=== PATIENT | female | born 1990 | race Caucasian/White ===

== ENCOUNTER 2018-09-17 13:59 | Outpatient (CLI) | payer MEDICAID | END 2018-09-17 19:10 | disposition home or self-care (01) | LOC: OBT 13:59 → L-D 13:59 → OBT 19:10 | DX: O28.1 Abnormal biochemical finding on antenatal screening of mother (principal); Z3A.36 36 weeks gestation of pregnancy | CPT/HCPCS: 76818 ==

== ENCOUNTER 2018-09-18 10:10 | Outpatient (CLI) | payer MEDICAID | END 2018-09-18 12:50 | disposition home or self-care (01) | LOC: OBT 10:10 → L-D 10:10 → OBT 12:50 | DX: O36.8130 Decreased fetal movements, third trimester, not applicable or unspecified (principal); Z3A.36 36 weeks gestation of pregnancy | CPT/HCPCS: 76818 ==

== ENCOUNTER 2018-10-06 06:10 | Inpatient (IN) | payer MEDICAID ==
[2018-10-06] MEDS: LACTATED RINGER'S 1,000 ML IV ×4 (06:41→22:33)
[2018-10-06 06:54] LABS: ADD MAN DIFF? NO
[2018-10-06 06:56] LABS: WHITE BLOOD COUNT 5.7 10^3/ul (4.8-10.8)
[2018-10-06 06:56] LABS: BASOPHILS % 0.7 % (0.0-2.0); EOSINOPHILS # 0.1 10^3/ul (0.0-0.5); EOSINOPHILS % 0.9 % (0.0-7.0); HEMATOCRIT 36.3 % (37.0-47.0); HEMOGLOBIN 12.4 g/dl (12.0-16.0); LYMPHOCYTES # 1.9 10^3/ul (0.8-2.9); LYMPHOCYTES % 32.6 % (15.0-51.0); MEAN CORPUSCULAR HEMOGLOBIN 30.8 pg (29.0-33.0); MEAN CORPUSCULAR HGB CONC 34.2 g/dl (32.0-37.0); MEAN CORPUSCULAR VOLUME 90.3 fl (82.0-101.0); MEAN PLATELET VOLUME 10.9 fl (7.4-10.4); MONOCYTE # 0.5 10^3/ul (0.3-0.9); MONOCYTES % 7.8 % (0.0-11.0); NEUTROPHIL # 3.3 10^3/ul (1.6-7.5); NEUTROPHILS % 57.7 % (39.0-77.0); PLATELET COUNT 188 10^3/UL (140-415); RED BLOOD COUNT 4.02 10^6/ul (4.20-5.40); RED CELL DISTRIBUTION WIDTH 12.4 % (11.5-14.5)
[2018-10-06] MEDS ORDERED: CARBOPROST 250 MCG INJ IM (07:00)
[2018-10-06] MEDS ORDERED: CEFAZOLIN 2 GM/50 ML (PMX) 50 ML IVPB (07:00)
[2018-10-06] MEDS ORDERED: METHYLERGONOVINE 0.2 MG INJ IM (07:00)
[2018-10-06] MEDS ORDERED: OXYTOCIN 30 UNITS/LR 500 ML IV ×2 (07:00)
[2018-10-06] MEDS ORDERED: MISOPROSTOL 200 MCG TAB PR ×2 (07:00→09:00)
[2018-10-06 07:13] LABS: INR 0.86; PARTIAL THROMBOPLASTIN TIME 24.4 Sec (23.0-35.0); PROTIME 11.8 Sec (11.9-14.9); PT RATIO 0.9
[2018-10-06 07:47] LABS: HEPATITIS B SURFACE ANTIGEN NEGATIVE (NEGATIVE)
[2018-10-06] MEDS: CITRIC ACID/NA CITRATE 30 ML CUP PO (08:32)
[2018-10-06] MEDS ORDERED: METOCLOPRAMIDE 10 MG INJ (08:37)
[2018-10-06] MEDS ORDERED: morphine SULFATE/PF (10 MG/10 ML) INJ (08:37)
[2018-10-06] MEDS ORDERED: ONDANSETRON 4 MG INJ (08:37)
[2018-10-06] MEDS ORDERED: KETOROLAC 30 MG INJ (08:46)
[2018-10-06] MEDS: SENNA/DOCUSATE NA (8.6MG/50MG) TAB PO ×2 (09:00→21:18)
[2018-10-06] MEDS ORDERED: NA PHOSPHATE/BIPHOS 133 ML ENEMA PR (09:00)
[2018-10-06] MEDS ORDERED: LANOLIN HPA 1 PKT TOP (09:00)
[2018-10-06] MEDS ORDERED: OXYCODONE/ACETAMINOPHEN (5/325) TAB PO (09:00)
[2018-10-06] MEDS ORDERED: FENTAnyl 50 MCG/ML VIAL (09:17)
[2018-10-06] MEDS ORDERED: morphine (1 MG/ML) 10ML SYRINGE IV ×3 (10:00)
[2018-10-06] MEDS ORDERED: ONDANSETRON 4 MG INJ IV ×2 (10:00)
[2018-10-06] MEDS ORDERED: DIPHENHYDRAMINE 50 MG INJ IV ×2 (10:00)
[2018-10-06] MEDS ORDERED: morphine 2 MG INJ IV ×3 (10:00)
[2018-10-06] MEDS ORDERED: NALOXONE (0.4 MG/ML) INJ IV (10:00)
[2018-10-06] MEDS: IBUPROFEN 600 MG TAB PO ×2 (12:00→18:00)
[2018-10-06] MEDS: KETOROLAC 30 MG INJ IV (22:16)
[2018-10-06 22:17] LABS: RAPID PLASMA REAGIN NONREACTIVE (NR)
[2018-10-07] MEDS: IBUPROFEN 600 MG TAB PO ×4 (06:00→17:13)
[2018-10-07] MEDS: LACTATED RINGER'S 1,000 ML IV ×3 (06:08→22:33)
[2018-10-07] MEDS: SENNA/DOCUSATE NA (8.6MG/50MG) TAB PO ×2 (08:28→21:49)
[2018-10-07 09:27] LABS: ADD MAN DIFF? NO
[2018-10-07 09:33] LABS: WHITE BLOOD COUNT 8.4 10^3/ul (4.8-10.8)
[2018-10-07 09:33] LABS: BASOPHILS % 0.5 % (0.0-2.0); EOSINOPHILS % 0.2 % (0.0-7.0); LYMPHOCYTES # 1.4 10^3/ul (0.8-2.9); LYMPHOCYTES % 16.9 % (15.0-51.0); MEAN CORPUSCULAR HEMOGLOBIN 31.3 pg (29.0-33.0); MEAN CORPUSCULAR HGB CONC 34.4 g/dl (32.0-37.0); MEAN CORPUSCULAR VOLUME 90.9 fl (82.0-101.0); MEAN PLATELET VOLUME 10.6 fl (7.4-10.4); MONOCYTE # 0.5 10^3/ul (0.3-0.9); NEUTROPHIL # 6.4 10^3/ul (1.6-7.5); PLATELET COUNT 162 10^3/UL (140-415); RED BLOOD COUNT 3.52 10^6/ul (4.20-5.40); RED CELL DISTRIBUTION WIDTH 12.8 % (11.5-14.5)
[2018-10-07] MEDS: KETOROLAC 30 MG INJ IV (09:48)
[2018-10-07] MEDS: OXYCODONE/ACETAMINOPHEN (5/325) TAB PO (21:49)
[2018-10-08] MEDS: IBUPROFEN 600 MG TAB PO ×3 (00:17→12:57)
[2018-10-08] MEDS: LACTATED RINGER'S 1,000 ML IV (06:33)
[2018-10-08] MEDS: SENNA/DOCUSATE NA (8.6MG/50MG) TAB PO (09:10)
[2018-10-08] MEDS: OXYCODONE/ACETAMINOPHEN (5/325) TAB PO (11:49)
[2018-10-09] MEDS ORDERED: DIPHTH/TET/ACEL PERTUSS (ADULT) 0.5 ML VIAL IM* (09:00)
[2018-10-09] MEDS ORDERED: MEASLES,MUMPS,RUBELLA VACCINE INJ SC* (09:00)
== END 2018-10-08 15:40 | disposition home or self-care (01) | DRG 785 ==
LOC: L-D 06:10 → PP1 12:23
PROVIDERS: Specialist
PROC: 10D00Z1 Extraction of Products of Conception, Low, Open Approach (ICD-10-PCS; principal; 2018-10-06 08:00)
PROC: 0UB70ZZ Excision of Bilateral Fallopian Tubes, Open Approach (ICD-10-PCS; 2018-10-06 08:00)
DX: O34.219 Maternal care for unspecified type scar from previous cesarean delivery (principal); Z3A.39 39 weeks gestation of pregnancy; Z37.0 Single live birth; Z30.2 Encounter for sterilization
CPT/HCPCS: 85025; 85610; 85730; 86592; 86850; 86870; 86900; 86901; 87340; 88302; 99464